=== PATIENT | male | born 1985 | race Caucasian/White ===

== ENCOUNTER 2016-08-04 12:26 | Inpatient (IN) | payer OTHER ==
[2016-08-04 13:42] VITALS: BMI 22.6
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
[2016-08-04] MEDS ORDERED: MAGNESIUM CITRATE 300 ML BOTTLE PO PRN (14:56)
[2016-08-04] MEDS ORDERED: ACETAMINOPHEN 325 MG TABLET (FP) PO PRN (14:56)
[2016-08-04] MEDS ORDERED: guaiFENesin/D-METHORPHAN HB 10 ML UNIT-DOSE CUPS PO PRN (14:56)
[2016-08-04] MEDS ORDERED: MAG HYDROX/AL HYDROX/SIMETH 30 ML UNIT-DOSE CUP PO PRN (14:56)
[2016-08-04] MEDS ORDERED: MAGNESIUM HYDROX 2400MG/30ML ORAL SUSPENSION 30 ML CUP PO PRN (14:56)
[2016-08-04] MEDS ORDERED: LOPERAMIDE HCL 2 MG CAPSULE PO PRN (14:56)
[2016-08-04] MEDS ORDERED: P-EPHED 60MG/TRIPROLIDI 2.5MG TABLET PO PRN (14:56)
[2016-08-04] MEDS ORDERED: IBUPROFEN 400 MG TABLET (FP) PO PRN (14:56)
[2016-08-04] MEDS ORDERED: MENTHOL/PHENOL 1 EACH UD MM PRN (14:56)
[2016-08-04] MEDS ORDERED: chlordiazePOXIDE HCL 25 MG CAPSULE PO PRN (14:56)
[2016-08-04] MEDS ORDERED: hydrOXYzine PAMOATE 25 MG CAPSULE (FP) PO PRN (14:56)
[2016-08-04] MEDS ORDERED: NICOTINE POLACRILEX 2 MG GUM BUC PRN (14:56)
[2016-08-04] MEDS ORDERED: chlordiazePOXIDE HCL 25 MG CAPSULE PO ONE (15:22)
[2016-08-04] MEDS: NICOTINE 14 MG/24 HOURS TOPICAL PATCH TD SCH (15:58)
[2016-08-04] MEDS: chlordiazePOXIDE HCL 25 MG CAPSULE PO SCH ×2 (17:49→22:45)
[2016-08-04 20:18] LABS: URINE APPEARANCE CLEAR; URINE BILIRUBIN NEGATIVE (NEGATIVE); URINE BLOOD NEGATIVE (NEGATIVE); URINE COLOR DKYELLOW; URINE GLUCOSE (UA) NEGATIVE (NEGATIVE); URINE KETONE NEGATIVE (NEGATIVE); URINE LEUK ESTERASE NEGATIVE (NEGATIVE); URINE NITRITE NEGATIVE (NEGATIVE); URINE UROBILINOGEN 2.0 E.U/dl E.U./dl (0.2-1.0)
[2016-08-04 20:20] LABS: URINE PROTEIN 1+ (NEGATIVE)
[2016-08-04 20:22] LABS: URINE MUCUS MODERATE; URINE RBC 2 /hpf (0-3); URINE WBC 3 /hpf (3-5)
[2016-08-04] MEDS ORDERED: HYDROCORTISONE 1% TOPICAL OINT 30 GM TUBE TP SCH (22:00)
[2016-08-04] MEDS: THIAMINE HCL 100 MG TABLET (FP) PO SCH (22:45)
[2016-08-04] MEDS: HYDROCORTISONE 1% TOPICAL OINT 30 GM TUBE TP SCH ×2 (22:46→22:50)
[2016-08-05] MEDS: chlordiazePOXIDE HCL 25 MG CAPSULE PO SCH ×4 (06:00→22:49)
[2016-08-05 09:58] LABS: MCH 30.5 pg (25.7-33.7); MCHC 32.9 g/dl (32.0-35.9); MEAN CELL VOLUME 92.9 fl (80-96); MEAN PLT VOLUME 10.8 fl (7.5-11.1); PLATELET COUNT 228 K/MM3 (134-434); RDW 14.4 % (11.9-15.9); WHITE BLOOD COUNT 9.8 K/mm3 (4.0-10.0)
[2016-08-05] MEDS: PRENATAL VITAMINS W/ FOLIC ACID TABLET (FP) PO SCH (10:53)
[2016-08-05] MEDS: NICOTINE 14 MG/24 HOURS TOPICAL PATCH TD SCH (10:54)
[2016-08-05 10:58] LABS: ALBUMIN 3.6 g/dl (3.4-5.0); ALK PHOS 60 U/L (45-117); ANION GAP 7 (8-16); BILIRUBIN,TOTAL 0.4 mg/dL (0.2-1.0); CALCIUM 8.9 mg/dL (8.5-10.1); CO2 28 mmol/L (21-32); CREATININE 1.1 mg/dL (0.7-1.3); GLUCOSE,RANDOM 99 mg/dL (74-106); SGOT/AST 11 U/L (15-37); SGPT/ALT 14 U/L (12-78); TOT PROT 6.8 g/dl (6.4-8.2)
[2016-08-05] MEDS: HYDROCORTISONE 1% TOPICAL OINT 30 GM TUBE TP SCH ×2 (10:58→22:54)
--- NOTE | 2016-08-05 12:19 | CONSULT ---
[facility] Psychiatric Consult - Data Date of interview: 08/05/16 Admission source: [facility] Identifying data: First admission to [facility] for this 30 y/o male seeking detox treatment for alcohol and cocaine dependence. Substance Abuse History: - Smoking Cessation. Smoking history: Current every day smoker. Have you smoked in the past 12 months: Yes. Aproximately how many cigarettes per day: 10. Hx Chewing Tobacco Use: No. Initiated information on smoking cessation: Yes. 'Breaking Loose' booklet given: 08/04/16. - Substance & Tx. History. Hx Alcohol Use: Yes (VODKA). Hx Substance Use: Yes (COCAINE). Substance Use Type: Alcohol, Cocaine. Hx Substance Use Treatment: Yes ([facility]). - Substances Abused. Alcohol. Route: Oral. Frequency: Daily. Amount used: 1 PINT VODKA. Age of first use: 17. Date of Last Use: 08/02/16. Cocaine. Route: Smoking. Frequency: Daily. Amount used: 3 GRAMS. Age of first use: 27. Date of Last Use: 08/02/16. Confirmed by patient. Medical History: Patient denies current medical problems. Psychiatric History: Patient admits to a history of psychiatric hospitalizations.No detalis provided.He reports that he attends the [facility] for his psychiatric aftercare.Diagnosed with Bipolar Disorder.Mr Lim indicates that he is on depakote (dose not recalled) and haloperidol decanoate (dose unclear).No history of suicide attempts. Physical/Sexual Abuse/Trauma History: No information. Additional Comment: Urine Drug Screen Results: DEMETRIUS-Cocaine.Noted. Mental Status Exam - Mental Status Exam Alert and Oriented to: Place, Person Cognitive Function: Good Patient Appearance: Unkempt, Disheveled Mood: Withdrawn Affect: Mood Congruent Patient Behavior: Sedated (moderately), Fatigued Speech Pattern: Delayed, Garbled (at times) Voice Loudness: Moderately Soft/Quiet Thought Process: Disoriented Thought Disorder: Not Present Hallucinations: Denies Suicidal Ideation: Denies Homicidal Ideation: Denies Insight/Judgement: Poor Sleep: Fair Appetite: Good Muscle strength/Tone: Normal Gait/Station: Normal (seen walking in hallway prior to the interview) Psychiatric Findings - Problem List ([place] 1, 2,3) (1) Alcohol dependence with uncomplicated withdrawal Current Visit: Yes Status: Acute (2) Cocaine dependence, uncomplicated Current Visit: Yes Status: Acute (3) Nicotine dependence Current Visit: Yes Status: Acute (4) Eczema Current Visit: Yes Status: Acute Qualifiers: Eczema type: unspecified Qualified Code(s): L30.9 - Dermatitis, unspecified (5) Bipolar disorder Current Visit: Yes Status: Chronic Comment: History. - Initial Treatment Plan Initial Treatment Plan: Psychoeducation.Detoxification.Medication requested by patient: depakote 500 mg po bid.Side effects/benefits discussed.Valproic acid level is pending.Observation.Pharmacy claims revisited (medications verified) .No scripts needed at discharge.
[2016-08-05 12:44] LABS: SICKLE CELL SCREEN NEGATIVE (NEGATIVE)
--- NOTE | 2016-08-05 15:12 | PN ---
[facility] CIWA - CIWA Score Nausea/Vomitin-No Nausea/No Vomiting Muscle Tremors: 4-Moderate,w/Arms Extend Anxiety: 3 Agitation: 4-Moderately Restless Paroxysmal Sweats: 3 Orientation: 0-Oriented Tacttile Disturbances: 0-None Auditory Disturbances: 0-None Visual Disturbances: 0-None Headache: 0-None Present CIWA-Ar Total Score: 14 BHS Progress Note (SOAP) Subjective: Anxiety,tremors,sweating,interrupted sleep,restless Objective: 08/05/16 15:11 Vital Signs - 8 hr 08/05/16 08/05/16 10:48 13:33 Temperature 98.1 F 96.7 F L Pulse Rate 67 77 Respiratory 18 18 Rate Blood Pressure 103/62 102/58 Laboratory Last Values WBC 9.8 K/mm3 (4.0-10.0) 08/05/16 06:00 RBC 4.19 M/mm3 (4.00-5.60) 08/05/16 06:00 Hgb 12.8 GM/dL (11.7-16.9) 08/05/16 06:00 Hct 38.9 % (35.4-49) 08/05/16 06:00 MCV 92.9 fl (80-96) 08/05/16 06:00 MCHC 32.9 g/dl (32.0-35.9) 08/05/16 06:00 RDW 14.4 % (11.9-15.9) 08/05/16 06:00 Plt Count 228 K/MM3 (134-434) 08/05/16 06:00 MPV 10.8 fl (7.5-11.1) 08/05/16 06:00 Sickle Cell Screen Negative (NEGATIVE) 08/05/16 06:00 Sodium 140 mmol/L (136-145) 08/05/16 06:00 Potassium 4.6 mmol/L (3.5-5.1) 08/05/16 06:00 Chloride 105 mmol/L (98-107) 08/05/16 06:00 Carbon Dioxide 28 mmol/L (21-32) 08/05/16 06:00 Anion Gap 7 (8-16) L 08/05/16 06:00 BUN 16 mg/dL (7-18) 08/05/16 06:00 Creatinine 1.1 mg/dL (0.7-1.3) 08/05/16 06:00 Creat Clearance w eGFR > 60 (>60) 08/05/16 06:00 Random Glucose 99 mg/dL (74-106) 08/05/16 06:00 Calcium 8.9 mg/dL (8.5-10.1) 08/05/16 06:00 Total Bilirubin 0.4 mg/dL (0.2-1.0) 08/05/16 06:00 AST 11 U/L (15-37) L 08/05/16 06:00 ALT 14 U/L (12-78) 08/05/16 06:00 Alkaline Phosphatase 60 U/L (45-117) 08/05/16 06:00 Total Protein 6.8 g/dl (6.4-8.2) 08/05/16 06:00 Albumin 3.6 g/dl (3.4-5.0) 08/05/16 06:00 Urine Color Dkyellow 08/04/16 19:00 Urine Appearance Clear 08/04/16 19:00 Urine pH 7.0 (5.0-8.0) 08/04/16 19:00 Ur Specific [place] 1.032 (1.001-1.035) 08/04/16 19:00 Urine Protein 1+ (NEGATIVE) H 08/04/16 19:00 Urine Glucose (UA) Negative (NEGATIVE) 08/04/16 19:00 Urine Ketones Negative (NEGATIVE) 08/04/16 19:00 Urine Blood Negative (NEGATIVE) 08/04/16 19:00 Urine Nitrite Negative (NEGATIVE) 08/04/16 19:00 Urine Bilirubin Negative (NEGATIVE) 08/04/16 19:00 Urine Urobilinogen 2.0 e.u/dl E.U./dl (0.2-1.0) 08/04/16 19:00 Ur Leukocyte Esterase Negative (NEGATIVE) 08/04/16 19:00 Urine RBC 2 /hpf (0-3) 08/04/16 19:00 Urine WBC 3 /hpf (3-5) 08/04/16 19:00 Urine Mucus Moderate 08/04/16 19:00 RPR Titer Nonreactive (NONREACTIVE) 08/05/16 06:00 labs noted Assessment: 08/05/16 15:12 Withdrawal sx. Plan: Continue detox
--- NOTE | 2016-08-05 16:55 | EKG ---
Test Reason : Blood Pressure : / mmHG Vent. Rate : 068 BPM Atrial Rate : 068 BPM P-R Int : 130 ms QRS Dur : 086 ms QT Int : 412 ms P-R-T Axes : 045 055 038 degrees QTc Int : 438 ms NORMAL SINUS RHYTHM NORMAL ECG NO PREVIOUS ECGS AVAILABLE Confirmed by REHAN RIVERO MD ([id number]) on 08/05/2016 4:55:13 PM Referred By: Confirmed By:REHAN RIVERO MD
[2016-08-05] MEDS: THIAMINE HCL 100 MG TABLET (FP) PO SCH (22:49)
[2016-08-05] MEDS: DIVALPROEX SODIUM 500 MG TABLET E.C. PO SCH (22:49)
[2016-08-05] MEDS: diphenhydrAMINE HCL 50 MG CAPSULE PO PRN (22:49)
[2016-08-06] MEDS: chlordiazePOXIDE HCL 25 MG CAPSULE PO SCH ×2 (05:45→10:41)
--- NOTE | 2016-08-06 10:36 | PN ---
[facility] CIWA - CIWA Score Nausea/Vomitin Muscle Tremors: 3 Anxiety: 3 Agitation: 2 Paroxysmal Sweats: 1-Minimal Palms Moist Orientation: 0-Oriented Tacttile Disturbances: 1-Very Mild Itch/Numbness Auditory Disturbances: 1-Very Mild Visual Disturbances: 1-Very Mild Sensitivity Headache: 2-Mild CIWA-Ar Total Score: 17 BHS Progress Note (SOAP) Subjective: ALERT,IRRITABLE,ANXIOUS,INTERRUPTED SLEEP,TREMOR Objective: 08/06/16 10:34 Vital Signs Temperature 98.1 F 08/06/16 10:13 Pulse Rate 80 08/06/16 10:13 Respiratory Rate 20 08/06/16 10:13 Blood Pressure 107/56 08/06/16 10:13 O2 Sat by Pulse Oximetry (%) EKG NSR Laboratory Last Values WBC 9.8 K/mm3 (4.0-10.0) 08/05/16 06:00 RBC 4.19 M/mm3 (4.00-5.60) 08/05/16 06:00 Hgb 12.8 GM/dL (11.7-16.9) 08/05/16 06:00 Hct 38.9 % (35.4-49) 08/05/16 06:00 MCV 92.9 fl (80-96) 08/05/16 06:00 MCHC 32.9 g/dl (32.0-35.9) 08/05/16 06:00 RDW 14.4 % (11.9-15.9) 08/05/16 06:00 Plt Count 228 K/MM3 (134-434) 08/05/16 06:00 MPV 10.8 fl (7.5-11.1) 08/05/16 06:00 Sickle Cell Screen Negative (NEGATIVE) 08/05/16 06:00 Sodium 140 mmol/L (136-145) 08/05/16 06:00 Potassium 4.6 mmol/L (3.5-5.1) 08/05/16 06:00 Chloride 105 mmol/L (98-107) 08/05/16 06:00 Carbon Dioxide 28 mmol/L (21-32) 08/05/16 06:00 Anion Gap 7 (8-16) L 08/05/16 06:00 BUN 16 mg/dL (7-18) 08/05/16 06:00 Creatinine 1.1 mg/dL (0.7-1.3) 08/05/16 06:00 Creat Clearance w eGFR > 60 (>60) 08/05/16 06:00 Random Glucose 99 mg/dL (74-106) 08/05/16 06:00 Calcium 8.9 mg/dL (8.5-10.1) 08/05/16 06:00 Total Bilirubin 0.4 mg/dL (0.2-1.0) 08/05/16 06:00 AST 11 U/L (15-37) L 08/05/16 06:00 ALT 14 U/L (12-78) 08/05/16 06:00 Alkaline Phosphatase 60 U/L (45-117) 08/05/16 06:00 Total Protein 6.8 g/dl (6.4-8.2) 08/05/16 06:00 Albumin 3.6 g/dl (3.4-5.0) 08/05/16 06:00 Urine Color Dkyellow 08/04/16 19:00 Urine Appearance Clear 08/04/16 19:00 Urine pH 7.0 (5.0-8.0) 08/04/16 19:00 Ur Specific [place] 1.032 (1.001-1.035) 08/04/16 19:00 Urine Protein 1+ (NEGATIVE) H 08/04/16 19:00 Urine Glucose (UA) Negative (NEGATIVE) 08/04/16 19:00 Urine Ketones Negative (NEGATIVE) 08/04/16 19:00 Urine Blood Negative (NEGATIVE) 08/04/16 19:00 Urine Nitrite Negative (NEGATIVE) 08/04/16 19:00 Urine Bilirubin Negative (NEGATIVE) 08/04/16 19:00 Urine Urobilinogen 2.0 e.u/dl E.U./dl (0.2-1.0) 08/04/16 19:00 Ur Leukocyte Esterase Negative (NEGATIVE) 08/04/16 19:00 Urine RBC 2 /hpf (0-3) 08/04/16 19:00 Urine WBC 3 /hpf (3-5) 08/04/16 19:00 Urine Mucus Moderate 08/04/16 19:00 RPR Titer Nonreactive (NONREACTIVE) 08/05/16 06:00 Assessment: 08/06/16 10:35 WITHDRAWAL SYMPTOM Plan: CONTINUE DETOX
[2016-08-06] MEDS: PRENATAL VITAMINS W/ FOLIC ACID TABLET (FP) PO SCH (10:41)
[2016-08-06] MEDS: DIVALPROEX SODIUM 500 MG TABLET E.C. PO SCH ×2 (10:41→22:34)
[2016-08-06] MEDS: NICOTINE 14 MG/24 HOURS TOPICAL PATCH TD SCH (10:41)
[2016-08-06] MEDS: HYDROCORTISONE 1% TOPICAL OINT 30 GM TUBE TP SCH ×2 (10:42→22:35)
[2016-08-06] MEDS: chlordiazePOXIDE 5 MG CAPSULE PO SCH ×2 (17:11→22:34)
[2016-08-06] MEDS: THIAMINE HCL 100 MG TABLET (FP) PO SCH (22:34)
[2016-08-06] MEDS: diphenhydrAMINE HCL 50 MG CAPSULE PO PRN (22:35)
[2016-08-07] MEDS: chlordiazePOXIDE 5 MG CAPSULE PO SCH ×2 (05:41→10:48)
[2016-08-07] MEDS: PRENATAL VITAMINS W/ FOLIC ACID TABLET (FP) PO SCH (10:47)
[2016-08-07] MEDS: NICOTINE 14 MG/24 HOURS TOPICAL PATCH TD SCH (10:48)
[2016-08-07] MEDS: HYDROCORTISONE 1% TOPICAL OINT 30 GM TUBE TP SCH ×2 (10:48→23:34)
[2016-08-07] MEDS: DIVALPROEX SODIUM 500 MG TABLET E.C. PO SCH ×2 (10:48→23:34)
[2016-08-07] MEDS: chlordiazePOXIDE HCL 10 MG CAPSULE PO SCH ×2 (17:33→23:34)
[2016-08-07] MEDS: THIAMINE HCL 100 MG TABLET (FP) PO SCH (23:34)
[2016-08-08] MEDS: chlordiazePOXIDE HCL 10 MG CAPSULE PO SCH (05:32)
[2016-08-08 06:35] VITALS: BP 99/59; PULSE 66; TEMP 97.2
--- NOTE | 2016-08-08 12:31 | DS ---
[facility] Detox Discharge Summary Admission Date: 08/04/16 Discharge Date: 08/08/16 - History Present History: Alcohol Dependence, Cocaine Dependence Additional Comments: ADVISED PATIENT TO FOLLOW-UP WITH [facility] MEDICAL PROVIDER AFTER DISCHARGE FROM DETOX FOR GENERAL MEDICAL ASSESSMENT AND FOR ANY ABNORMAL ADMISSION LAB VALUES. Pertinent Past History: Depression, Bi-Polar disorder, Schizophrenia. - Physical Exam Results Vital Signs: Vital Signs Temperature 97.2 F L 08/08/16 06:35 Pulse Rate 66 08/08/16 06:35 Respiratory Rate 18 08/08/16 06:35 Blood Pressure 99/59 08/08/16 06:35 O2 Sat by Pulse Oximetry (%) Pertinent Admission Physical Exam Findings: WITHDRAWAL SYMPTOMS. Laboratory Last Values WBC 9.8 K/mm3 (4.0-10.0) 08/05/16 06:00 RBC 4.19 M/mm3 (4.00-5.60) 08/05/16 06:00 Hgb 12.8 GM/dL (11.7-16.9) 08/05/16 06:00 Hct 38.9 % (35.4-49) 08/05/16 06:00 MCV 92.9 fl (80-96) 08/05/16 06:00 MCHC 32.9 g/dl (32.0-35.9) 08/05/16 06:00 RDW 14.4 % (11.9-15.9) 08/05/16 06:00 Plt Count 228 K/MM3 (134-434) 08/05/16 06:00 MPV 10.8 fl (7.5-11.1) 08/05/16 06:00 Sickle Cell Screen Negative (NEGATIVE) 08/05/16 06:00 Sodium 140 mmol/L (136-145) 08/05/16 06:00 Potassium 4.6 mmol/L (3.5-5.1) 08/05/16 06:00 Chloride 105 mmol/L (98-107) 08/05/16 06:00 Carbon Dioxide 28 mmol/L (21-32) 08/05/16 06:00 Anion Gap 7 (8-16) L 08/05/16 06:00 BUN 16 mg/dL (7-18) 08/05/16 06:00 Creatinine 1.1 mg/dL (0.7-1.3) 08/05/16 06:00 Creat Clearance w eGFR > 60 (>60) 08/05/16 06:00 Random Glucose 99 mg/dL (74-106) 08/05/16 06:00 Calcium 8.9 mg/dL (8.5-10.1) 08/05/16 06:00 Total Bilirubin 0.4 mg/dL (0.2-1.0) 08/05/16 06:00 AST 11 U/L (15-37) L 08/05/16 06:00 ALT 14 U/L (12-78) 08/05/16 06:00 Alkaline Phosphatase 60 U/L (45-117) 08/05/16 06:00 Total Protein 6.8 g/dl (6.4-8.2) 08/05/16 06:00 Albumin 3.6 g/dl (3.4-5.0) 08/05/16 06:00 Urine Color Dkyellow 08/04/16 19:00 Urine Appearance Clear 08/04/16 19:00 Urine pH 7.0 (5.0-8.0) 08/04/16 19:00 Ur Specific [place] 1.032 (1.001-1.035) 08/04/16 19:00 Urine Protein 1+ (NEGATIVE) H 08/04/16 19:00 Urine Glucose (UA) Negative (NEGATIVE) 08/04/16 19:00 Urine Ketones Negative (NEGATIVE) 08/04/16 19:00 Urine Blood Negative (NEGATIVE) 08/04/16 19:00 Urine Nitrite Negative (NEGATIVE) 08/04/16 19:00 Urine Bilirubin Negative (NEGATIVE) 08/04/16 19:00 Urine Urobilinogen 2.0 e.u/dl E.U./dl (0.2-1.0) 08/04/16 19:00 Ur Leukocyte Esterase Negative (NEGATIVE) 08/04/16 19:00 Urine RBC 2 /hpf (0-3) 08/04/16 19:00 Urine WBC 3 /hpf (3-5) 08/04/16 19:00 Urine Mucus Moderate 08/04/16 19:00 RPR Titer Nonreactive (NONREACTIVE) 08/05/16 06:00 LABS NOTED. - Treatment Hospital Course: Detox Protocol Followed, Detoxed Safely, Responded well, Discharged Condition Good Patient has Accepted a Rehab Referral to: NO - PATIENT TO GO [facility]. - Medication Discharge Medications: Ambulatory Orders Divalproex [Depakote -] 500 mg PO BID 08/04/16 Haloperidol Decanoate [Haldol Decanoate 50] 150 mg IM MONTHLY 08/04/16 - Diagnosis (1) Alcohol dependence with uncomplicated withdrawal Status: Acute (2) Cocaine dependence, uncomplicated Status: Acute (3) Eczema Status: Acute Qualifiers: Eczema type: unspecified Qualified Code(s): L30.9 - Dermatitis, unspecified (4) Nicotine dependence Status: Chronic Qualifiers: Nicotine product type: cigarettes Substance use status: uncomplicated Qualified Code(s): F17.210 - Nicotine dependence, cigarettes, uncomplicated (5) Bipolar disorder Status: Chronic Qualifiers: Active/Remission status: remission status unspecified Qualified Code (s): F31.9 - Bipolar disorder, unspecified (6) History of depression Status: Chronic - AMA Did Patient Leave Against Medical Advice: No
== END 2016-08-08 09:40 | disposition home or self-care (01) | DRG 774 ==
LOC: YASAS 12:26 → Y3N 15:13
PROVIDERS: ADMIT Internal Medicine; ATTEND Internal Medicine
PROC: HZ2ZZZZ Detoxification Services for Substance Abuse Treatment (ICD-10-PCS; principal; 2016-08-08)
DX: F10.230 Alcohol dependence with withdrawal, uncomplicated (principal); F14.20 Cocaine dependence, uncomplicated; F17.210 Nicotine dependence, cigarettes, uncomplicated; F31.9 Bipolar disorder, unspecified; L30.9 Dermatitis, unspecified
CPT/HCPCS: 36415; 80053; 81003; 81015; 85027; 85660; 86593; 93005; 93010